=== PATIENT | male | born 1970 | race Caucasian/White ===

== ENCOUNTER 2018-12-30 13:30 | Emergency (ER) | payer OTHER ==
[~2018-12-30] VITALS: Wt 85.4 kg
[2018-12-30 13:34] VITALS: BP 108/64; PULSE 86; RESP 20
[2018-12-30] MEDS ORDERED: DOCU-144 PO (15:15)
[2018-12-30] MEDS ORDERED: HYDR26CR PR (15:15)
--- NOTE | 2018-12-30 15:19 | ERD ---
ER Documentation Chief Complaint Chief Complaint hemorroids, bleeding since yest HPI 48-year-old male patient with past medical history of hemorrhoids, diabetes, hypertension, hyperlipidemia presents to the ED complaining of his hemorrhoids acting up that started yesterday. States that 2 months ago, he was prescribed a cream and stool softeners, and it worked for his symptoms. States that when he wipes, he notices some bright red bleeding however denies any bloody stools. Denies any chest pain, shortness of breath, nausea, vomiting, diarrhea, neck stiffness. States that his blood sugar was 145 this morning. States that he takes Januvia and metformin. ROS All systems reviewed and are negative except as per history of present illness. Medications Home Meds Active Scripts Docusate Sodium* (Colace*) 100 Mg Capsule, 100 MG PO TID, #30 CAP Prov:ANTELMO BRADLEY PA-C 12/30/18 Hydrocortisone* Rectal (Preparation H* Cream) 1% - 26 Gm Cream.gm., 1 APPLIC HI TID, #1 TUB Prov:ANTELMO BRADLEY PA-C 12/30/18 Allergies Allergies: Coded Allergies: Penicillins (Verified Allergy, Mild, 12/30/18) PMhx/Soc Hx Cardiac Disorders: Yes (hypertension) Hx Alcohol Use: No Hx Substance Use: No Hx Tobacco Use: No Smoking Status: Never smoker FmHx Family History: No diabetes, No coronary disease Physical Exam Vitals Vital Signs Date Temp Pulse Resp B/P (MAP) Pulse Ox O2 O2 Flow FiO2 Time Delivery Rate 12/30/18 98.6 86 20 108/64 98 13:34 (79) Physical Exam Const: Art-ajf-zzumnvybu, well-nourished. In no acute distress. Head: Atraumatic, normocephalic Eyes: Normal Conjunctiva without injection. No purulent discharge. ENT: Normal external ear, nose. Moist oropharynx without tonsillar exudates. Non-erythematous pharynx. Uvula midline. No drooling. No trismus. Neck: No cervical midline tenderness. Full range of motion. No meningismus. No cervical lymphadenopathy. No JVD. Resp: Clear to auscultation bilaterally. No wheezing, rhonchi, rales, or crackles. No accessory muscle use. No retractions. Cardio: Regular rate and rhythm. No murmurs, rubs or gallops. Abd: Soft, non distended. Normal bowel sounds. No palpable masses. No rebound tenderness. No guarding. Negative McBurney's point. Negative psoas sign. Negative obturator sign. Rectum: Patient gave consent to do a rectal exam. External hemorrhoids noted at the inferior portion of patient's rectum as well as superior portion. Patient had tenderness palpation of the inferior external hemorrhoid. No active bleeding noted. No hemorrhaging noted. : See exam in MDM. Skin: No petechiae or rashes Back: No midline tenderness. No CVA tenderness. Ext: No cyanosis, or edema. Neur: Awake and alert. Normal gait. Normal coordination. Psych: Normal Mood and Affect Procedures/MDM 48-year-old male patient with a past medical history of hemorrhoids, hyperlipidemia, hypertension, diabetes presents to the ED complaining of his hemorrhoids acting up. Patient is afebrile and nontoxic-appearing. Patient currently does not have any hemorrhaging noted. Patient not actively bleeding. Patient states that he only has bright red blood with wiping. Patient symptoms are likely secondary to his hemorrhoids. Low suspicion for testicular torsion, gastritis, GERD, peptic ulcer disease, cholecystitis, choledocholithiasis, cholangitis, pancreatitis, appendicitis, bowel obstruction, ileus, volvulus, nephrolithiasis, pyelonephritis, hepatitis, perforated viscus, diverticulitis, abdominal hernia, acute abdomen, mesenteric ischemia or other emergent conditions. Diagnosis: Acute hemorrhoid Discharge medications: Colace, Preparation H cream Follow up with primary care physician in 1-2 days for referral to see a rubber washer. Instructed patient to return to the ED sooner for any worsening symptoms. Patient's questions were answered. Patient is hemodynamically stable. Patient understood and agreed with discharge plan. Patient discharged stable. Disclaimer: Inadvertent spelling and grammatical errors are likely due to EHR/dictation software use and do not reflect on the overall quality of patient care. Also, please note that the electronic time recorded on this note does not necessarily reflect the actual time of the patient encounter. Departure Diagnosis: Primary Impression: Acute hemorrhoid Condition: Stable Patient Instructions: Hemorrhoids Ref[facility] Usted se baker hecho un examen mdico de control que le indica que no est en chary c ondicin que requiera tratamiento urgente en el Departamento de Emergencia. Un estudio ms profundo y el tratamiento de akins condicin pueden esperar sin ningn riesgo hasta que usted sea atendida/o en el consultorio de akins mdico o chary clnica. Es responsabilidad suya arreglar chary sara para el seguimiento del pastor. MANEJO DE CONDICIONES NO URGENTES EN EL FUTURO 1) Si usted tiene un mdico de atencin primaria: Usted debera llamar a akins mdico de atencin primaria antes de venir al departamento de emergencia. Despus de las horas de consultorio, akins doctor o akins asociado/a est disponible por telfono. El mdico o enfermero de sheryl en el servicio telefnico puede asesorarle por lebron medio para atender el problema, o pastor contrario se puede programar chary sara. 2) Si usted no tiene un mdico de atencin primaria: Llame al mdico o clnica de referencia que aparece abajo murali las horas de consultorio para hacer chary sara para que le vean. CLINICAS: [facility] [phone] [address] [facility] [phone] [address] [facility]. [facility] [phone] [address] [facility]. [place] [id number] [phone] [place] [id number] [phone] [facility]. [phone] [facility] () Usted se baker hecho un examen mdico de control que le indica que no est en chary c ondicin que requiera tratamiento urgente en el Departamento de Emergencia. Un estudio ms profundo y el tratamiento de akins condicin pueden esperar sin ningn riesgo hasta que usted sea atendida/o en el consultorio de akins mdico o chary clnica. Es responsabilidad suya arreglar chary sara para el seguimiento del pastor. MANEJO DE CONDICIONES NO URGENTES EN EL FUTURO 1) Si usted tiene un mdico de atencin primaria: Usted debera llamar a akins mdico de atencin primaria antes de venir al departamento de emergencia. Despus de las horas de consultorio, akins doctor o akins asociado/a est disponible por telfono. El mdico o enfermero de sheryl en el servicio telefnico puede asesorarle por lebron medio para atender el problema, o pastor contrario se puede programar chary sara. 2) Si usted no tiene un mdico de atencin primaria: Llame al mdico o condado institucions de referencia que aparece abajo murali las horas de consultorio para hacer chary sara para que le vean. SI USTED NO PUEDE PAGAR PARA SHAHZAD UN MEDICO puede ir a: [facility] [address] [place] [address] [facility] [address] [place] [address] [facility] [address] [place] [address] [facility] [facility] [address] [place] [address] Additional Instructions: Llame al doctor MAANA y felipe chary SARA PARA DENTRO DE 2-3 BARRERA para referencia para shahzad a un proctlogo.Dgale a la secretaria que nosotros le instruimos hacer esta sara.Avise o llame si akins condicin se empeora antes de la sara. Regresa aqui si peor o no mejor. ANTELMO BRADLEY PA-C Dec 30, 2018 15:19
== END 2018-12-30 15:21 | disposition home or self-care (01) ==
LOC: FTE 13:30
DX: K64.9 Unspecified hemorrhoids (principal); E11.9 Type 2 diabetes mellitus without complications; I10 Essential (primary) hypertension
CPT/HCPCS: 99283

== ENCOUNTER 2019-05-16 14:10 | Day surgery (SDC) | payer OTHER ==
[~2019-05-16] VITALS: Ht 165.1 cm; Wt 88.6 kg
[~2019-05-16 14:10] MED LIST: ASPI325T30 PO; DOCU-144 PO; EMPA25TA PO; FENO200 PO; HALO10TA PO; HYDR26CR PR; IBUP-1542 PO; LISI10TA2 PO; OMEG-135 PO; OMEP40CA38 PO; PRAM0.25 PO; SERT20OR5 PO; SITA1TAB5 PO; [UNRECOGNIZED DRUG - CODE] PO; [UNRECOGNIZED DRUG - OTHER]
[2019-05-16 15:17] VITALS: Ht 165.1 cm; Wt 88.6 kg
[2019-05-16 15:33] VITALS: BP 110/63; PULSE 71; RESP 18
[2019-05-16] MEDS ORDERED: PROPOFOL 20 ML ONE ×2 (16:02→16:34)
[2019-05-16 17:06] VITALS: BP 103/64; RESP 20
== END 2019-05-16 16:45 | disposition home or self-care (01) ==
LOC: GIL 14:10
PROVIDERS: ATTEND Internal Medicine Gastroenterology
DX: Z12.11 Encounter for screening for malignant neoplasm of colon (principal); K29.50 Unspecified chronic gastritis without bleeding; K20.9 Esophagitis, unspecified; R10.11 Right upper quadrant pain; E11.9 Type 2 diabetes mellitus without complications; I10 Essential (primary) hypertension; Z79.82 Long term (current) use of aspirin
CPT/HCPCS: 43239; 45378; 82962; 88305; 88312; 88313; Z7610